=== PATIENT | female | born 1990 | race Hispanic/Latino ===

== ENCOUNTER 2018-01-26 23:05 | Inpatient (IN) | payer OTHER ==
[~2018-01-26] VITALS: Ht 160 cm; Wt 73.9 kg
[~2018-01-26 23:05] MED LIST: VITAFOL GUMMIE1 EACH PO; ZOFRAN ODT4 M1 SL
[2018-01-27 00:28] VITALS: BP 135/94
[2018-01-27 00:54] LABS: ABSOLUTE BASOPHIL COUNT 0 /CUMM (0.0-0.2); ABSOLUTE EOSINOPHIL COUNT 0.1 /CUMM (0.0-0.7); ABSOLUTE GRANULOCYTE CT 8.1 /CUMM (1.4-6.5); ABSOLUTE MONOCYTE COUNT 0.8 /CUMM (0.10-0.60); BASOPHIL % 0.3 % (0.0-2.0); EOSINOPHIL % 1.3 % (0-5); GRANULOCYTE % 73.2 % (42.2-75.2); HEMATOCRIT 30.6 % (37-47); MEAN CORPUSCULAR HGB 28.2 PG (27.0-31.0); MEAN CORPUSCULAR HGB CONC 33.6 G/DL (33.0-37.0); MEAN PLATELET VOLUME 8.9 FL (7.4-10.4); PLATELET COUNT 309 /CUMM (130-400); RBC DISTRIBUTION WIDTH 14.7 % (11.5-14.5); RED BLOOD CELL CT 3.64 /CUMM (4.20-5.40); WHITE BLOOD CELL COUNT 11.1 /CUMM (4.8-10.8)
--- NOTE | 2018-01-27 07:40 | History & Physical ---
General Information and HPI MD Statement: I have seen and personally examined MAURILIO HERR and documented this H&P. The patient is a 27 year old female at 40 weeks and 2 days gestation who presented with a chief complaint of SROM. Patient contacted the service at 2020 01/26/18 with same complaint. Source of Information: patient, old records Exam Limitations: no limitations History of Present Illness: Patient reports SROM clear fluid. Good movement. Denies visual symptoms. Denies RUQ pain. Did have headache this past week. Allergies/Medications Allergies: Coded Allergies: Sulfa (Sulfonamide Antibiotics) (Mild, RASH 09/25/17) Home Med list Ondansetron (Zofran Odt) 4 MG TAB.RAPDIS 1 TAB SL TID PRN nausea Pnv 112/Iron/FA/Om-3S/Dha/Epa (Vitafol Gummies) 1 EACH TAB.CHEW 1 TAB PO DAILY (Reported) Compliance With Home Meds: GOOD Past History dry cans back tender History : 1 Para: 0 Last Menstrual Period: 04/20/17 Estimated Delivery Date: 01/25/18 Past dry cans back tender History: none Medical History Blood Transfusion Hx: No Neurological: NONE EENT: NONE Cardiovascular: NONE Respiratory: NONE Gastrointestinal: NONE Hepatic: NONE Renal: NONE Musculoskeletal: NONE Psychiatric: NONE Endocrine: NONE Blood Disorders: NONE Cancer(s): NONE 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 Home Who Do You Live With? spouse Primary Language: Latvian Smoking Status: Never Smoked ETOH Use: denies use Illicit Drug Use: denies illicit drug use Living Will? unknown Power of Food And Beverage Assistant/HCP? unknown Other Social History: NA Employment History Employment Unemployed Review of Systems Review of Systems Constitutional: Denies: no symptoms. EENTM: Denies: no symptoms. Cardiovascular: Denies: no symptoms. Respiratory: Denies: no symptoms. GI: Denies: no symptoms. Genitourinary: Denies: no symptoms. Musculoskeletal: Denies: no symptoms. Skin: Denies: no symptoms. Neurological/Psychological: Denies: no symptoms. Hematologic/Endocrine: Denies: no symptoms. Immunologic/Allergic: Denies: no symptoms. Date of LMP: 04/20/17 Post Menopausal: No Date of Last Pap Smear: 07/02/17 Exam & Diagnostic Data Last 24 Hrs of Vital Signs/I&O Vital Signs Date Time Temp Pulse Resp B/P B/P Pulse O2 O2 Flow FiO2 Mean Ox Delivery Rate 01/27 0028 135/94 Intake & Output 01/27 0800 04 0000 01/26 1600 Intake Total Output Total Balance Patient 73.936 kg Weight Obstetric Exam Wgt Gained During : 32 Pelvimetry: Gynecoid Dilation (cm): 3 Effacement (%): 80 Station: -1 Membranes: SROM Fluid: clear Fundal Height (cm): 38 Multiple Gestation? No Contractions: Regular q3-5 Infant #1 - FHR Baseline: 140 Category: 1 Estimated Weight: 3300 Presentation: Cephalic Patient for Induction? No Physical Exam General Appearance Alert, Oriented X3, Cooperative, No Acute Distress Skin No Rashes HEENT Atraumatic Neck Supple Cardiovascular Regular Rate Lungs Normal Air Movement Abdomen Soft, No Tenderness Neurological Normal Gait, Normal Speech, Strength at 5/5 X4 Ext, Normal Tone, Sensation Intact Extremities No Edema Vascular Pulses Symmetrical Breasts Breast appear nl Labs Blood Type & Rh: A positive Antibody Screen: negative Hct/Hgb & Platelets #1: 29.8 303 Hct/Hgb & Platelets #2: 29.9 303 Rubella: Nonimmune VDRL #1: negative VDRL #2: negative HbsAg: negative HIV #1: negative HIV #2 negative 1 Hr P Group B Strep: negative Initial Ultrasound: wnl Anatomy Ultrasound: wnl Ultrasound for EFW: 3030 on 01/06/18 Genetic Testing: Negative screen Last 24 Hrs of Labs/Jaspreet: Laboratory Tests 01/27/18 0025: Estimated GFR > 60, Uric Acid 3.8, AST 22, ALT 32, Lactate Dehydrogenase 462, CBC w Diff NO MAN DIFF REQ, RBC 3.64 L, MCV 84.0, MCH 28.2, MCHC 33.6, RDW 14.7 H, MPV 8.9, Gran % 73.2, Lymphocytes % 18.0 L, Monocytes % 7.2, Eosinophils % 1.3, Basophils % 0.3, Absolute Granulocytes 8.1 H, Absolute Lymphocytes 2.0, Absolute Monocytes 0.8 H, Absolute Eosinophils 0.1, Absolute Basophils 0 01/27/18 0015: Ur Random Creatinine 41.7, U Random Total Protein 43 H, Protein/Creatinin Ratio 1.0 H 01/27/18 0015: Urinalysis LIGHT H, Urine Color YEL, Urine Clarity HAZY H, Urine pH 6.0, Ur Specific Barnum 1.020, Urine Protein 30 H, Urine Ketones NEG, Urine Nitrite NEG, Urine Bilirubin NEG, Urine Urobilinogen 0.2, Ur Leukocyte Esterase NEG, Ur Microscopic SEDIMENT EXAMINED, Urine RBC 25-50 H, Urine WBC 1-3 H, Ur Epithelial Cells MANY H, Urine Bacteria FEW H, Urine Mucus FEW, Urine Hemoglobin LARGE H, Urine Glucose NEG 01/26/18 2315: Membrane Rupture POSITIVE Assessment/Plan Assessment/Plan: Para 0 at 40w2d with PROM clear fluid and catagory 1 tracing. Patient rubella nonimmune. Patient was evaluated twice previously for PIH and lab show no evidence of HEELP however patient with PC ratio that is 1. BP are less than 140/90 and no symptoms of preeclampsia. GBBS negative 1) Patient presented at 1 cm and now 3 cm with regular contractions. In my opinion allow spontaneous labor however if pattern of contractions spaces out than start oxytocin. 2) On last US HC was 32 so recent literature comments that if HC is over 35 there is a higher incidence of operative delivery and or csection. She has gynecoid pelvis. 3) Pain mgmt. Patient did well with morphine over night and is comfortable at present. Epidural as needed. MMR prior to discharge. 4) Anticipate vaginal . Dr Rollins made aware of patients admission. Patient and family had opportunity to ask questions. Patient's mother and patient's at bedside. As Ranked By This Provider Problem List: 1. Premature rupture of membranes Core Measures Venous Thromboembolism VTE Risk Factors / No Mechanical VTE Prophylaxis d/t N/A MechProphylax Ordered No VTE Pharm Prophylaxis d/t Other
--- NOTE | 2018-01-27 18:59 | History & Physical Pre-Op ---
General Information and HPI Source of Information: patient, old records Exam Limitations: no limitations History of Present Illness: This patient is a 27-year-old 1 para 0 LMP 04/20/2017 EDC 01/25/2018 at 40 weeks and 2 days presents with premature rupture membranes. She was given Pitocin augmentation throughout the day and progressed to 9-1/2 cm. Throughout the day she had periods of tachycardia treated with acetaminophen IV. She was also started on ampicillin and received 2 doses. She is now experienced a prolonged variable deceleration with return to baseline with decreased variability and her cervix remains 9-1/2 cm. Plan is to proceed with primary section. 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 Home Who Do You Live With? spouse Primary Language: Nepali Smoking Status: Never Smoked ETOH Use: denies use Illicit Drug Use: denies illicit drug use Living Will? unknown Power of Rand Sewer/HCP? unknown Other Social History: NA Employment History Employment: Unemployed Review of Systems Review of Systems Constitutional: Reports: no symptoms. EENTM: Reports: no symptoms. Cardiovascular: Reports: no symptoms. Respiratory: Reports: no symptoms. GI: Reports: no symptoms. Genitourinary: Reports: see HPI. Musculoskeletal: Reports: see HPI. Skin: Reports: no symptoms. Neurological/Psychological: Reports: no symptoms. Hematologic/Endocrine: Reports: no symptoms. Immunologic/Allergic: Reports: no symptoms. All Other Systems: Reviewed and Negative Date of LMP: 04/20/17 Post Menopausal: No Date of Last Pap Smear: 07/02/17 Exam & Diagnostic Data Last 24 Hrs of Vital Signs/I&O Vital Signs Date Time Temp Pulse Resp B/P B/P Pulse O2 O2 Flow FiO2 Mean Ox Delivery Rate 01/27 1530 101.6 04 1100 99.5 01/27 1000 100.6 01/27 0028 135/94 Intake & Output 01/27 1600 01/27 0800 01/27 0000 Intake Total Output Total Balance Patient 163 lb Weight Physical Exam: HEENT: Normocephalic atraumatic Chest: Clear to auscultation Cardiovascular: Normal S1-S2 Abdomen: Gravid, cephalic, estimated weight 8-1/2 pounds Cervix: 9.5 cm 100% effaced 0 station with molding Extremities: Mild pitting edema Neurologic: Nonfocal Assessment/Plan Assessment/Plan: nonreassuring testing primary c section As Ranked By This Provider Problem List: 1. Premature rupture of membranes
--- NOTE | 2018-01-27 20:29 | Operative Report ---
Operative/Inv Procedure Report Surgery Date: 01/27/18 Name of Procedure: Primary Pre-Operative Diagnosis: Nonreassuring heart rate testing Post-Operative Diagnosis: Same, malposition direct OP Estimated Blood Loss: 800 mL Surgeon/Drivematic Machine Operator: John Carver MD,Channing Hicks M.D. Anesthesia: epidural Operative/Procedure Note Note: The patient was brought to the operating room and placed on the OR table in the supine position and her epidural was reinforced. She was prepped and draped in usual sterile fashion and Venodyne boots were placed on the lower extremities. The skin was tested and a Pfannenstiel skin incision was made with scalpel and taken down to the layer of the fascia. The knot fashion was nicked in the midline and extended bilaterally. The underlying rectus muscles were sharply dissected off of the overlying fascia. Rectus muscles were in the midline and the peritoneal cavity was entered sharply. A [place] bladder blade was inserted to protect the bladder from the operative field and a bladder flap was created using Metzenbaum scissors. The bladder flap was based behind the Georgi bladder blade. A low transverse uterine incision was made with the scalpel and the uterine cavity was entered revealing clear fluid. A liveborn was delivered from direct OP and handed off to the waiting shredding floor equipment operator. Placenta was then manually removed intact. The uterus was exteriorized and wiped clean with a wet lap sponge. The uterus was closed in 2 layers of 0 Polysorb, the second imbricating the first. The pelvis and abdomen were copiously irrigated and the uterus was placed back into the abdominal cavity. Suture line was once again visualized and one [id number] suture was needed on the left angle. The rectus muscles were reapproximated in 2 mattress sutures of 0 Polysorb. The fascia was closed with 0 Polysorb in a running nonlocking fashion. Subcutaneous tissues were irrigated and coagulated were needed and reapproximated using 20 plain suture material. Skin was closed using jovita a dry sterile dressing was applied to the wound. The patient was sent to recovery in satisfactory condition. All needle, sponge, and instrument counts were correct at the end of the procedure 4.
--- NOTE | 2018-01-28 06:57 | PN- OBGYN ---
Surgical Brief Attending Note Brief Attending Note: Informed overnight patient with T100.8. Previous temp noted intrapartum. As two temperatures over 100.4 with risks of PROM and additional csection than start on empiric treatment for endometritis. Benefits to reduce sepsis reviewed. Risks of antibiotic associated diarrhea reviewed. Most likely course will be 24 hours and then ceased. 24 hour aminoglycoside dosing with reduced nephrotoxicity. Clindamycin ordered for anaerobic coverage. Follow up fever curve.
[2018-01-28 09:25] LABS: ABSOLUTE BASOPHIL COUNT 0 /CUMM (0.0-0.2); ABSOLUTE EOSINOPHIL COUNT 0.1 /CUMM (0.0-0.7); ABSOLUTE GRANULOCYTE CT 8.9 /CUMM (1.4-6.5); ABSOLUTE LYMPH COUNT 1.9 /CUMM (1.2-3.4); ABSOLUTE MONOCYTE COUNT 0.6 /CUMM (0.10-0.60); BASOPHIL % 0.1 % (0.0-2.0); EOSINOPHIL % 0.6 % (0-5); GRANULOCYTE % 77.1 % (42.2-75.2); HEMATOCRIT 26.7 % (37-47); MEAN CORPUSCULAR HGB CONC 32.6 G/DL (33.0-37.0); MEAN CORPUSCULAR VOLUME 85.9 FL (81.0-99.0); MEAN PLATELET VOLUME 8.7 FL (7.4-10.4); PLATELET COUNT 241 /CUMM (130-400); RBC DISTRIBUTION WIDTH 15.2 % (11.5-14.5); WHITE BLOOD CELL COUNT 11.5 /CUMM (4.8-10.8)
--- NOTE | 2018-01-29 11:34 | PN- Post Delivery/GYN ---
Subjective Subjective: Positive flatus Review of Systems: Negative Objective Last 24 Hrs of Vital Signs/I&O Vital Signs Date Time Temp Pulse Resp B/P B/P Pulse O2 O2 Flow FiO2 Mean Ox Delivery Rate 01/28 1450 Room Air Room Air Physical Exam: Incision clean dry and intact Extremities nontender Assessment/Plan Assessment/Plan Status post postoperative day #2 stable Plan: Discharge home tomorrow Problem List: 1.
[2018-01-29] MEDS ORDERED: IBUPROFEN800 M1 PO (11:44)
[2018-01-29] MEDS ORDERED: PERCOCET 5-3251 EACH PO (11:44)
[2018-01-29] MEDS ORDERED: DOCUSATE SODIU100 M3 PO (11:44)
== END 2018-01-30 13:30 | DRG 765 ==
LOC: CBCO 23:05 → GNO 23:52
PROVIDERS: Obstetrics & Gynecology
PROC: 4A1H74Z Monitoring of Products of Conception, Cardiac Electrical Activity, Via Natural or Artificial Opening (ICD-10-PCS; 2018-01-26)
PROC: 10H073Z Insertion of Monitoring Electrode into Products of Conception, Via Natural or Artificial Opening (ICD-10-PCS; 2018-01-26)
PROC: 10D00Z1 Extraction of Products of Conception, Low, Open Approach (ICD-10-PCS; principal; 2018-01-27)
DX: O42.12 Full-term premature rupture of membranes, onset of labor more than 24 hours following rupture (principal); O86.4 Pyrexia of unknown origin following delivery; O64.0XX0 Obstructed labor due to incomplete rotation of fetal head, not applicable or unspecified; O76 Abnormality in fetal heart rate and rhythm complicating labor and delivery; Z3A.40 40 weeks gestation of pregnancy; Z37.0 Single live birth; Z88.2 Allergy status to sulfonamides
CPT/HCPCS: GNOP; GNOS; 36415; 81001; 82570; 84112; 87086; J0131; J0690; J1580; J1885; J7120